=== PATIENT | male | born 1975 | race Two or more races ===

== ENCOUNTER 2019-05-24 17:42 | Inpatient (IN) | payer MEDICARE, MEDICAID ==
[~2019-05-24] VITALS: Ht 167.6 cm; Wt 104.3 kg
[2019-05-24 17:48] VITALS: BP 134/98
--- NOTE | 2019-05-24 17:48 | NUR ---
ED Nurse Note: pt was BROUGHT IN BY RA [address] DUE TO SOB WORSE IN THE LAST 2 HOURS. STATES ITS BEEN ON GOING X 1 WEEK. PER EMS, OXYGEN SATS GOING DOWN TO 89% IN ROOM AIR. PT CAME IN WITH NASAL CANNULA AT 2LPM. AAO X4, FOLLOWS COMMANDS, WITH INCREASED EFFORT IN BREATHOMG AT REST. LUNGS DIMINISHED UPON AUSCULTATION.
[2019-05-24] MEDS ORDERED: HALOPERIDOL1 MG ORAL (17:50)
[2019-05-24] MEDS ORDERED: HYDROXYZINE HCL25 M1 PO (17:50)
[2019-05-24] MEDS ORDERED: RISPERDAL0.5 MG ORAL (17:50)
--- NOTE | 2019-05-24 17:55 | Emergency Room Report ---
History of Present Illness General Chief Complaint: Dyspnea/Respdistress Source: Medical Record, EMS Present Illness HPI Patient is a 44-year-old male who presents after increased difficulty breathing and generalized weakness. He reports being smoker. He reports having prior history of psychiatric disease. He had recently been seen in evaluated at [facility]. Patient had reported feeling weak all over as well as having increased nonproductive cough. He denies taking any inhalers. He reports having bilateral leg pain. He reports some prior history of psychiatric problems and is currently taking Haldol. Allergies: Coded Allergies: No Known Allergies (Unverified , 05/24/19) Patient History Past Medical History: see triage record Reviewed Nursing Documentation: PMH: Agreed; PSxH: Agreed Nursing Documentation-PMH Hx Hypertension: Yes History Of Psychiatric Problem: Yes - DRUG ABUSE Review of Systems All Other Systems: limited - Review of systems: Review systems is limited by patient's being a poor historian Physical Exam Vital Signs Date Time Temp Pulse Resp B/P (MAP) Pulse Ox O2 Delivery O2 Flow Rate FiO2 05/24/19 17:38 96.8 111 20 119/74 (89) 97 Nasal Cannula 2.0 General Appearance: alert, GCS 15, moderate distress, obese, Chronically Ill ENT: other - Edentulous Neck: full range of motion Respiratory: wheezing Cardiovascular #1: tachycardia, edema Gastrointestinal: normal inspection, non tender, soft Musculoskeletal: normal inspection Neurologic: alert, broom worker III-XII nml as tested, oriented x3 Psychiatric: memory normal, mood/affect normal, other Skin: other - abdominal wall bruising Procedures Critical Care Time Critical Care Time Patient had a critical medical condition which untreated could potentially result in life or limb threatening injury. Total critical care time excluding procedures approximately 45 minutes. Medical Decision Making Diagnostic Impression: Primary Impression: COPD exacerbation Additional Impression: Obesity ER Course Patient present for increased difficulty with breathing. Differential diagnosis include was not limited to COPD exacerbation, pneumonia, influenza, bronchitis among others. Because of complexity of patient's case laboratory tests and imaging studies were ordered. Patient was noted to be initially tachypneic as well as wheezing. He was given breathing treatments. Laboratory testing showed some elevation of the patient's CO2. Patient was started on BiPAP. He was given breathing treatments. Patient will be admitted for further evaluation and treatment. Dr. David Amaya was contacted for inpatient management Labs Test 05/24/19 18:00 05/24/19 18:35 05/24/19 19:20 05/24/19 20:45 White Blood Count 9.9 K/UL (4.8-10.8) Red Blood Count 5.38 M/UL (4.70-6.10) Hemoglobin 15.1 G/DL (14.2-18.0) Hematocrit 47.0 % (42.0-52.0) Mean Corpuscular Volume 87 FL (80-99) Mean Corpuscular Hemoglobin 28.2 PG (27.0-31.0) Mean Corpuscular Hemoglobin Concent 32.2 G/DL (32.0-36.0) Red Cell Distribution Width 13.5 % (11.6-14.8) Platelet Count 296 K/UL (150-450) Mean Platelet Volume 5.7 FL (6.5-10.1) Neutrophils (%) (Auto) 64.3 % (45.0-75.0) Lymphocytes (%) (Auto) 26.7 % (20.0-45.0) Monocytes (%) (Auto) 6.6 % (1.0-10.0) Eosinophils (%) (Auto) 1.2 % (0.0-3.0) Basophils (%) (Auto) 1.3 % (0.0-2.0) Sodium Level 140 MMOL/L (136-145) Potassium Level 3.7 MMOL/L (3.5-5.1) Chloride Level 103 MMOL/L (98-107) Carbon Dioxide Level 31 MMOL/L (21-32) Anion Gap 6 mmol/L (5-15) Blood Urea Nitrogen 5 mg/dL (7-18) Creatinine 0.8 MG/DL (0.55-1.30) Estimat Glomerular Filtration Rate > 60 mL/min (>60) Glucose Level 150 MG/DL (74-106) Calcium Level 8.5 MG/DL (8.5-10.1) Total Bilirubin 0.2 MG/DL (0.2-1.0) Aspartate Amino Transf (AST/SGOT) 17 U/L (15-37) Alanine Aminotransferase (ALT/SGPT) 16 U/L (12-78) Alkaline Phosphatase 111 U/L (46-116) Troponin I 0.012 ng/mL (0.000-0.056) Pro-B-Type Natriuretic Peptide 19 pg/mL (0-125) Total Protein 6.4 G/DL (6.4-8.2) Albumin 3.1 G/DL (3.4-5.0) Globulin 3.3 g/dL Albumin/Globulin Ratio 0.9 (1.0-2.7) Thyroid Stimulating Hormone (TSH) 0.670 uiU/mL (0.358-3.740) Salicylates Level 3.0 ug/mL (2.8-20) Acetaminophen Level < 2 MCG/ML (10-30) Serum Alcohol < 3 mg/dL Urine Color Pale yellow Urine Appearance Clear Urine pH 6 (4.5-8.0) Urine Specific Cadott 1.010 (1.005-1.035) Urine Protein Negative (NEGATIVE) Urine Glucose (UA) Negative (NEGATIVE) Urine Ketones Negative (NEGATIVE) Urine Blood Negative (NEGATIVE) Urine Nitrite Negative (NEGATIVE) Urine Bilirubin Negative (NEGATIVE) Urine Urobilinogen Normal MG/DL (0.0-1.0) Urine Leukocyte Esterase Negative (NEGATIVE) Urine Opiates Screen Negative (NEGATIVE) Urine Barbiturates Screen Negative (NEGATIVE) Phencyclidine (PCP) Screen Negative (NEGATIVE) Urine Amphetamines Screen Negative (NEGATIVE) Urine Benzodiazepines Screen Negative (NEGATIVE) Urine Cocaine Screen Negative (NEGATIVE) Urine Marijuana (THC) Screen Negative (NEGATIVE) Arterial Blood pH 7.341 (7.350-7.450) Arterial Blood Partial Pressure CO2 60.2 mmHg (35.0-45.0) Arterial Blood Partial Pressure O2 68.5 mmHg (75.0-100.0) Arterial Blood HCO3 31.8 mmol/L (22.0-26.0) Arterial Blood Oxygen Saturation 93.5 % (95-100) Arterial Blood Base Excess 4.1 (-2-2) Sonido Test Positive Lactic Acid Level 0.60 mmol/L (0.66-2.22) EKG Diagnostic Results Rate: tachycardiac Rhythm: NSR ST Segments: no acute changes Last Vital Signs Date Time Temp Pulse Resp B/P (MAP) Pulse Ox O2 Delivery O2 Flow Rate FiO2 05/24/19 17:48 96.8 102 37 134/98 98 Nasal Cannula 2.0 Status: improved Disposition: ADMITTED INPATIENT Condition: Stable Franklin Davis MD May 24, 2019 17:55
[2019-05-24] MEDS ORDERED: Albuterol/Ipratropium 3ml neb HHN ONE ×2 (18:00→19:30)
--- NOTE | 2019-05-24 18:05 | NUR ---
ED Nurse Note: COLLECTE DBLOOD SPECIMEN THEN SENT.
--- NOTE | 2019-05-24 18:05 | NUR ---
ED Nurse Note: RT FORREST AT THE BED SIDE FOR BREATHING TREATMENT.
[2019-05-24 18:19] LABS: BASOPHILS % (AUTO) 1.3 % (0.0-2.0); EOSINOPHILS % (AUTO) 1.2 % (0.0-3.0); HEMOGLOBIN 15.1 G/DL (14.2-18.0); LYMPHOCYTES % (AUTO) 26.7 % (20.0-45.0); MEAN CORPUSCULAR VOLUME 87 FL (80-99); MONOCYTES % (AUTO) 6.6 % (1.0-10.0); NEUTROPHILS % (AUTO) 64.3 % (45.0-75.0); PLATELET COUNT 296 K/UL (150-450); RED BLOOD COUNT 5.38 M/UL (4.70-6.10); RED CELL DISTRIBUTION WIDTH 13.5 % (11.6-14.8); WHITE BLOOD COUNT 9.9 K/UL (4.8-10.8)
[2019-05-24 18:36] LABS: ANION GAP 6 mmol/L (5-15); BLOOD UREA NITROGEN 5 mg/dL (7-18); CALCIUM 8.5 MG/DL (8.5-10.1); CARBON DIOXIDE 31 MMOL/L (21-32); CHLORIDE 103 MMOL/L (98-107); CREATININE 0.8 MG/DL (0.55-1.30); POTASSIUM 3.7 MMOL/L (3.5-5.1); SODIUM 140 MMOL/L (136-145)
[2019-05-24 18:40] LABS: APPEARANCE,URINE CLEAR; BILIRUBIN, URINE NEGATIVE (NEGATIVE); COLOR,URINE PALE YELLOW; GLUCOSE, URINE (UA) NEGATIVE (NEGATIVE); KETONES,URINE NEGATIVE (NEGATIVE); LEUKOCYTE ESTERASE ,URINE NEGATIVE (NEGATIVE); NITRITE,URINE NEGATIVE (NEGATIVE); PH,URINE 6 (4.5-8.0); PROTEIN,URINE NEGATIVE (NEGATIVE); UROBILINOGEN,URINE NORMAL MG/DL (0.0-1.0)
[2019-05-24 18:51] LABS: ALANINE AMINOTRANSFERASE 16 U/L (12-78); ALBUMIN 3.1 G/DL (3.4-5.0); ASPARTATE AMINO TRANSFERASE 17 U/L (15-37); BILIRUBIN,TOTAL 0.2 MG/DL (0.2-1.0)
[2019-05-24 18:52] LABS: ALBUMIN/GLOBULIN RATIO 0.9 (1.0-2.7); ALKALINE PHOSPHATASE 111 U/L (46-116)
--- NOTE | 2019-05-24 19:15 | NUR ---
HAND-OFF: Report given to LOPEZ BLANDON.
--- NOTE | 2019-05-24 19:23 | NUR ---
ED Nurse Note: received report from RN Krista and assumed care, pt sleeping at this time, satey measures in place, vss, o2 via nc =2L/min, sinus tach on telemetry monitor, will cont monitor.
[2019-05-24 19:24] VITALS: BP 118/56
--- NOTE | 2019-05-24 19:27 | NUR ---
ED Nurse Note: contacted RT for ABG and breathing tx.
--- NOTE | 2019-05-24 19:40 | NUR ---
ED Nurse Note: ERMD aware of ABG results, RT at the bedside for BIPAP ORDER.
--- NOTE | 2019-05-24 20:43 | NUR ---
ED Nurse Note: LACTIC REFLEX SENT TO LAB. SWABS COLLECTED PER HOSPITAL PROTOCOL. PT'S MEDICATION IN MEDICATION SAFE BOX.
[2019-05-24 20:48] VITALS: BP 116/62
--- NOTE | 2019-05-24 20:49 | NUR ---
ED Nurse Note: noted brusing on pt's right undereye and lower abd. ermd aware.
[2019-05-24] MEDS ORDERED: Nitroglycerin Subl 0.4mg tab SL PRN (21:00)
[2019-05-24] MEDS ORDERED: LORazepam Inj 2mg/ml 1ml IV PRN (21:00)
[2019-05-24] MEDS ORDERED: Morphine Sulfate 2mg/ml Inj(IV/IM USE ONLY) IVP PRN (21:00)
[2019-05-24] MEDS ORDERED: Albuterol/Ipratropium 3ml neb HHN PRN (21:00)
[2019-05-24] MEDS ORDERED: Promethazine/Codeine 5ml UD ORAL PRN (21:00)
[2019-05-24] MEDS ORDERED: Theophylline ER 100mg ORAL SCH (21:00)
[2019-05-24] MEDS ORDERED: Piperacillin/Tazobactam 3.375 GM in D5W 55 ML IV SCH (22:00)
--- NOTE | 2019-05-24 22:05 | NUR ---
ED Nurse Note: report given to BARBER Dooley from SDU.
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
--- NOTE | 2019-05-24 22:10 | NUR ---
TRANSFER TO FLOOR: Patient transferred to SDU per ERMD order, RT present during transport, pt transported on the gurney per hospital protocol, vss, resp even and unlabored on O2via NC, iv intact and patent, care endorsed to BARBER Dooley, informed receiving RN pt refused to do mini-cog. swabs collected and sent. med recon done and medications were sent to safe box and informed receiving RN. All belongings sent w/ pt w/ completed list.
[2019-05-24 22:20] VITALS: BP 110/78
[2019-05-24] MEDS: Theophylline ER 100mg ORAL SCH (22:30)
[2019-05-24] MEDS: Heparin 5000 units/ml inj SUBQ SCH (22:30)
[2019-05-24] MEDS ORDERED: Zoysn 3.37gm in NS 100ML IVPB SCH (23:00)
--- NOTE | 2019-05-24 23:48 | NUR ---
NURSE NOTES: Called pipeline, Zosyn label still not printed. Pharmacy to reschedule Zosyn to 05/25/19 at 0000. Will carry out order at that time.
[2019-05-25] VITALS: BP 109/53
[2019-05-25] MEDS: Zoysn 3.37gm in NS 100ML IVPB SCH ×2 (00:34→09:20)
[2019-05-25] MEDS: Solu-MEDROL 125mg Inj IV SCH ×2 (00:34→05:04)
[2019-05-25 04:00] VITALS: BP 110/58
--- NOTE | 2019-05-25 04:30 | NUR ---
NURSE NOTES: Pt provided with bed bath, oral care and linen change. Pt tolerated care well. Pt remains clean and dry. Pt continues resting in bed, bed is in lowest position with safety wheels engaged, bed alarm activated, call light within reach and side rails up x3. Will continue to monitor.
--- NOTE | 2019-05-25 04:51 | NUR ---
NURSE NOTES: Spoke with RT Machine not currently available for ETCO2 monitoring, order for Chest Physiotherapy entered without a frequency. Will try to obtain complete order.
--- NOTE | 2019-05-25 06:51 | NUR ---
NURSE NOTES: Per Dr Pope carry over Bipap order from ED okay for pt due to periods of apnea with desaturation noted while sleeping.
--- NOTE | 2019-05-25 07:02 | NUR ---
RESPIRATORY NOTE: removed pt off bipap and placed on 4L NC. no signs of resp distress noted. no visible redness or skin wounds around facial area. current spo2 98% with HR of 114. will cont to monitor.
--- NOTE | 2019-05-25 07:36 | NUR ---
HAND-OFF: Report given to BARBER Joyner.
[2019-05-25 08:00] VITALS: BP 131/96
[2019-05-25] MEDS: Theophylline ER 100mg ORAL SCH (08:42)
[2019-05-25] MEDS: Heparin 5000 units/ml inj SUBQ SCH (08:43)
[2019-05-25] MEDS ORDERED: Haloperidol 1mg tab ORAL SCH (09:00)
--- NOTE | 2019-05-25 11:21 | NUR ---
NURSE NOTES: Patient stated to this nurse would like to leave hospital "right now". Patient is alert and oriented x 4. Informed patient that they are not medically cleared at this time to leave hospital, patient verbalized understanding. Patient persists on leaving, informed patient if would like to leave hospital, they will have to sign Against Medical Advice document. Patient verbalized understanding. Patient signed AMA form, form placed in chart. Dr. Amaya made aware and acknowledged. Dr. Pope made aware and acknowledged. Discontinued patient's left hand IV, no active bleeding noted. Discontinued patients ID band and placed in shredder. Heart monitor taken off and returned to quality assurance monitor body. Patient noted with medication slip in chart. Inquired pharmacy if medications stored in department, diploma pharmacy technician informed this nurse that none is seen. Contacted nurse home supervisor of medication situation. Nurse home supervisor informed this nurse that none was stored in hospital safe. Patient states "I can't wait for them, I wanna leave." Patient left hospital prior to taking medications admitted with. Patient left hospital with all belongings.
[2019-05-25] MEDS ORDERED: Tubing IV Secondary IV ONE (11:28)
[2019-05-25] MEDS ORDERED: NS 275ml ONE (11:28)
--- NOTE | 2019-05-25 14:28 | History & Physical ---
History and Physical History & Physicial patient signed AMA prior my visit David Amaya MD May 25, 2019 14:28
--- NOTE | 2019-05-25 14:28 | Diagnostic Imaging Report ---
Indication: Shortness of breath Technique: One view of the chest Comparison: none Findings: The heart is enlarged. There is mild bilateral interstitial edema. No focal airspace consolidation. No definite effusions Impression: Cardiomegaly with mild bilateral interstitial edema
--- NOTE | 2019-05-25 17:48 | NUR ---
CASE MANAGEMENT: INITIAL REVIEW 44 YR OLD MALE BIBA FROM STREET CC: DYSPNEA / RESP DISTRESS SI: COPD EXACERBATION 96.8 111 20 119/74 97% ON NC 2L IS: IV NS BOLUS X1 ALBUTEROL HHN X2 \: 2W STEP DOWN UNIT DCP: PLACEMENT PATIENT LEFT AMA
--- NOTE | 2019-05-26 10:14 | Discharge Summary ---
Discharge Summary Discharge Summary _ DATE OF ADMISSION: 05/24/2019 DATE OF DISCHARGE: 05/25/2019 BRIEF HOSPITAL COURSE: Patient is a 44-year-old male, who presented to ED due to increased difficulty breathing deep breathing and generalized weakness. Patient has reported history of psychiatric disease. He was recently seen and evaluated at [facility]. Reported increased nonproductive cough. He denies any inhaler use. He reported bilateral leg pain. He has history of drug abuse and hypertension. Upon evaluation at ED, he was saturating 97% on 2 L nasal cannula. Blood pressure was normal, pulse rate elevated to 111. He was noted to be initially tachypneic and wheezing. Blood work did not show any leukocytosis. Hemoglobin and hematocrit were stable. Electrolytes were normal. Troponin was negative. proBNP 19. Serum alcohol level was less than 3. Salicylate 3.0. Acetaminophen level less than 2. Urine toxicology was negative. ABG showed pCO2 of 60. He was given breathing treatments. He was placed on BiPAP support. Chest x-ray showed mild bilateral interstitial edema. He was then admitted for acute COPD exacerbation. He was admitted to [facility]. He was started on empiric IV antibiotics. He was placed on Heparin for DVT prophylaxis. He was given IV Solu-Medrol. He was started on Pankaj-Dur. Full treatment was not carried out as patient left against medical advise. FINAL DIAGNOSES: Acute respiratory failure requiring BiPAP support. Acute COPD exacerbation Obesity DISPOSITION: Patient left against medical advise. I have been assigned to complete a discharge summary on this account, I was not involved with the patient's management.--KVNG Lira Jacqueline Robles NP May 26, 2019 10:14
== END 2019-05-25 11:29 | disposition left against medical advice (07) | DRG 190 ==
LOC: EDBD 17:42 → EMR 18:05 → EDBEDREQ 19:48 → 2W 20:01 → EDBEDREQ 21:33
PROC: 5A09357 Assistance with Respiratory Ventilation, Less than 24 Consecutive Hours, Continuous Positive Airway Pressure (ICD-10-PCS; principal; 2019-05-24)
DX: J44.1 Chronic obstructive pulmonary disease with (acute) exacerbation (principal); J96.00 Acute respiratory failure, unspecified whether with hypoxia or hypercapnia; E66.9 Obesity, unspecified; Z68.37 Body mass index [BMI] 37.0-37.9, adult
CPT/HCPCS: 36415; 36600; 71045; 80053; 80307; 81003; 82803; 83605; 83880; 84443; 84484; 85025; 86710; 87040; 87081; 93306; 94640; 94660; 94664; 96360; 99285; G0480; J2405; J7620